=== PATIENT | male | born 1985 | race American Indian/Alaskan Native ===

== ENCOUNTER 2018-04-29 03:04 | Emergency (ER) | payer MEDICAID ==
[2018-04-29 03:04] VITALS: BMI 41.3
[2018-04-29 03:15] VITALS: BP 139/82; RESP 20; TEMP 98.4
[2018-04-29] MEDS ORDERED: Amoxicillin-Clav 875-125 mg Tab PO STA (03:36)
[2018-04-29] MEDS ORDERED: Amoxicillin-Clav 875-125 mg Tab PO ONE (03:45)
--- NOTE | 2018-04-29 04:09 | C.PDOC ---
History Of Present Illness 32 year old male presents to the emergency department with complaints of left earache, cough, and congestion for the last three days. Chief Complaint (Nursing): ENT Problem History Per: Patient History/Exam Limitations: None Onset/Duration Of Symptoms: Days (3) Current Symptoms Are (Timing): Still Present Past Medical History Reviewed: Historical Data, Nursing Documentation, Vital Signs Vital Signs: Last Vital Signs Temp 98.4 F 04/29/18 03:10 Pulse 78 04/29/18 04:16 Resp 20 04/29/18 03:10 BP 139/82 04/29/18 03:10 Pulse Ox 97 04/29/18 04:18 - Medical History PMH: Asthma, Bronchitis, HTN, Sleep Apnea Surgical History: Tonsillectomy (2001) Family History: States: No Known Family Hx - Social History Hx Tobacco Use: No Hx Alcohol Use: No Hx Substance Use: No - Immunization History Hx Tetanus Toxoid Vaccination: Yes Hx Influenza Vaccination: Yes Hx Pneumococcal Vaccination: Yes Review Of Systems Except As Marked, All Systems Reviewed And Found Negative. ENT: Positive for: Ear Pain, Nose Congestion Respiratory: Positive for: Cough Physical Exam - Physical Exam Appears: Well, Non-toxic, No Acute Distress Skin: Warm, Dry Head: Atraumatic, Normacephalic Eye(s): bilateral: Normal Inspection Ear(s): Left: TM Erythema, Other (erythematous ear canal, exudates ), Right: Normal Nose: Normal Oral Mucosa: Moist Throat: Normal, No Erythema, No Exudate Neck: Normal, Supple Chest: Symmetrical, No Tenderness Cardiovascular: Rhythm Regular, No Murmur Respiratory: Normal Breath Sounds, No Rales, No Rhonchi, No Wheezing Gastrointestinal/Abdominal: Soft, No Tenderness Extremity: Normal ROM Neurological/Psych: Oriented x3, Normal Speech, Normal Cognition, Normal Cranial Nerves ED Course And Treatment O2 Sat by Pulse Oximetry: 97 (RA) Pulse Ox Interpretation: Normal Progress Note: Plan: Augmentin 1 tab PO. Motrin 600mg PO. Glucose Blood POC Disposition - Disposition Disposition: HOME/ ROUTINE Disposition Time: 04:06 Condition: STABLE Additional Instructions: Follow up with your PMD within 1-2 days. Return to Ed if feel worse. 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 - Scribe Statement The provider has reviewed the documentation as recorded by the Scribe (Joaquin Mcneill) All medical record entries made by the Scribe were at my direction and personally dictated by me. I have reviewed the chart and agree that the record accurately reflects my personal performance of the history, physical exam, medical decision making, and the department course for this patient. I have also personally directed, reviewed, and agree with the discharge instructions and disposition.
[2018-04-29 04:17] VITALS: PULSE 78
[2018-04-29 04:18] VITALS: O2SAT 97
== END 2018-04-29 04:17 | disposition home or self-care (01) ==
LOC: C.ER 03:04
DX: H66.90 Otitis media, unspecified, unspecified ear (principal); I10 Essential (primary) hypertension

== ENCOUNTER 2018-12-19 01:48 | Emergency (ER) | payer MEDICAID | END 2018-12-19 02:29 | disposition home or self-care (01) | LOC: C.ER 01:48 ==